=== PATIENT | male | born 1935 | race Caucasian/White ===

== ENCOUNTER 2016-12-31 17:34 | Inpatient (IN) | payer BC, OTHER ==
[~2016-12-31] VITALS: Ht 190.5 cm; Wt 126.7 kg
[~2016-12-31 17:34] MED LIST: ALUMCHW6 PO; ASCA500 PEG; ASPI-390 PO; CALC-323 PO; CYAN500T13 PO; L LYSINE PO; MOVE FREE PO; TRIA0.1C20 TOP
[2016-12-31] MEDS ORDERED: SODIUM CHLORIDE 0.9% 1000ML 1,000 ML IV STA (18:17)
[2016-12-31] MEDS ORDERED: ASPIRIN 81 MG CHEW PO STA (18:17)
[2016-12-31] MEDS ORDERED: NITROGLYCERIN 0.4 MG SL PER TAB CHARGE SL PRN ×2 (18:30→23:15)
[2016-12-31 18:34] LABS: BASO % 0.6 %; BASO ABS # 0.04 K/uL (0-0.2); COMPLETE YES; EOS % 1.8 %; HEMATOCRIT 43.8 % (42-52); IG% 0.5 %; LYMPH % 19.2 %; LYMPH ABS # 1.27 K/uL (1.2-3.4); MEAN CELL VOLUME 84.1 fL (80-100); MEAN CORPUSCULAR HEMOGLOBIN 30.1 pg (25-34); MEAN CORPUSCULAR HGB CONC 35.8 g/dl (32-36); MEAN PLATELET VOLUME 8.8 fL (7.4-10.4); MONO % 8.7 %; NEUT % 69.2 %; PLATELET COUNT 132 K/uL (130-400); RED BLOOD COUNT 5.21 M/uL (4.7-6.1); WHITE BLOOD COUNT 6.63 K/uL (4.8-10.8)
[2016-12-31 18:40] LABS: ALT/SGPT 20 U/L (12-78); BLOOD UREA NITROGEN 19 mg/dl (7-18); BUN/CREATININE RATIO 15.4 (10-20); CALCIUM 9.6 mg/dl (8.5-10.1); CARBON DIOXIDE 26 mmol/L (21-32); CHLORIDE 108 mmol/L (98-107); GLUCOSE 86 mg/dl (70-99); MAGNESIUM 2.1 mg/dl (1.8-2.4); POTASSIUM 4.3 mmol/L (3.5-5.1); SODIUM 140 mmol/L (136-145)
[2016-12-31 18:45] LABS: ALKALINE PHOSPHATASE 71 U/L (45-117); AST/SGOT 23 U/L (15-37)
--- NOTE | 2016-12-31 19:01 | DIAGNOSTIC IMAGING REPORT ---
SINGLE VIEW CHEST CLINICAL HISTORY: Atypical chest pain. FINDINGS: An AP, portable, upright chest radiograph is compared to study dated 07/18/2014. The examination is degraded by portable technique, apical lordotic positioning, and patient rotation. The heart is mildly enlarged. The pulmonary vasculature is noncongested. Chronic interstitial thickening is similar to previous. The lungs and pleural spaces are otherwise clear. No pneumothorax is seen. The skeletal structures are osteopenic. Degenerative change is noted throughout the thoracic spine. IMPRESSION: Cardiomegaly with no acute cardiopulmonary abnormality. Electronically signed by: Gatito Boone M.D. 12/31/2016 6:59 PM Dictated Date/Time: 12/31/2016 6:59 PM
[2016-12-31] MEDS ORDERED: KETOROLAC TROMETHAMINE 30 MG/ML VIAL IV STA (20:24)
[2016-12-31] MEDS ORDERED: MULT-506 PO (21:14)
--- NOTE | 2016-12-31 21:26 | EMERGENCY ROOM VISIT NOTE ---
History Report prepared by [place]: Cristela Noriega Under the Supervision of: Dr. Hugh Jaeger M.D. First contact with patient: 17:56 Chief Complaint: CHEST PAIN Stated Complaint: SORE ARM, CHEST History of Present Illness The patient is an 81 year old male who presents to the Emergency Room with complaints of persistent left chest pain starting 1430 today. He describes the pain as a dull ache. He states that it is mild and started gradually. The pain goes into his left shoulder and down his arm. He has never had this before. He was feeling well this morning. He feels his heart beating irregularly at times. He has a history of PVCs. He denies any nausea, vomiting, SOB, diaphoresis, fever, chills, cough, congestion, diarrhea, constipation, or urinary symptoms. He notes he has pulled out several thin porcupine quill-like strings out of his arms recently. He denies any heavy lifting. He denies any history of hypertension, PA, high cholesterol, or diabetes. Source of History: patient Onset: 1430 today Position: chest (left) Symptom Intensity: mild Quality: ache, dull Timing: other (persistent) Associated Symptoms: No fevers, No chills, No diaphoresis, No cough, No SOB , No nausea, No vomiting, No diarrhea, No urinary symptoms Note: Pt reports left shoulder pain, left arm pain, irregular heart beats. Pt denies congestion, constipation. Review of Systems See HPI for pertinent positives and negatives. A total of ten systems were reviewed and were otherwise negative. Past Medical & Surgical Medical Problems: (1) Chest pain radiating to arm (2) No Known Active Medical Problems Family History Noncontributory secondary to age. Social History Smoking Status: Never Smoker Marital Status: Occupation Status: retired Current/Historical Medications Scheduled Cyanocobalamin (Vitamin B12 500MCG), 2,500 MCG PO QAM Multivitamin (Multivitamin), 1 TAB PO DAILY Scheduled PRN Triamcinolone Acet (Aristocort 0.1%), 1 APPLN EXT BID PRN for Itching Allergies Coded Allergies: Aspartame (Verified Allergy, Unknown, HEADACHE,SWEATS,VOMITING, 12/31/16) Codeine (Verified Allergy, Unknown, MEMORY PROBLEMS, 12/31/16) Physical Exam Vital Signs Date Time Temp Pulse Resp B/P (MAP) Pulse Ox O2 Delivery O2 Flow Rate FiO2 12/31/16 22:20 71 18 136/75 97 Room Air 12/31/16 22:08 84 12/31/16 21:09 69 20 148/85 97 Room Air 12/31/16 20:07 66 18 129/72 97 Room Air 12/31/16 18:35 73 120/78 12/31/16 18:26 97 Room Air 12/31/16 18:12 64 12/31/16 17:59 97 Room Air 12/31/16 17:51 36.4 69 150/79 98 Room Air Physical Exam GENERAL: Awake, alert, well-appearing, in no distress HENT: Normocephalic, atraumatic. Dry mucous membranes. EYES: Normal conjunctiva. Sclera non-icteric. NECK: Supple. No nuchal rigidity. FROM. No JVD. RESPIRATORY: Clear to auscultation. CARDIAC: Regular rate, normal rhythm. Extremities warm and well perfused. Pulses equal. ABDOMEN: Soft, non-distended. No tenderness to palpation. No rebound or guarding. No masses. RECTAL: Deferred. MUSCULOSKELETAL: Chest examination reveals no tenderness. The back is symmetrical on inspection without obvious abnormality. There is no CVA tenderness to palpation. No joint edema. LOWER EXTREMITIES: Calves are equal size bilaterally and non-tender. No edema. No discoloration. NEURO: Normal sensorium. No sensory or motor deficits noted. SKIN: No rash or jaundice noted. Medical Decision & Procedures ER Provider Diagnostic Interpretation: Radiology results as stated below per my review and radiologist interpretation: SINGLE VIEW CHEST CLINICAL HISTORY: Atypical chest pain. FINDINGS: An AP, portable, upright chest radiograph is compared to study dated 07/18/2014. The examination is degraded by portable technique, apical lordotic positioning, and patient rotation. The heart is mildly enlarged. The pulmonary vasculature is noncongested. Chronic interstitial thickening is similar to previous. The lungs and pleural spaces are otherwise clear. No pneumothorax is seen. The skeletal structures are osteopenic. Degenerative change is noted throughout the thoracic spine. IMPRESSION: Cardiomegaly with no acute cardiopulmonary abnormality. Electronically signed by: Gatito Boone M.D. 12/31/2016 6:59 PM Dictated Date/Time: 12/31/2016 6:59 PM Laboratory Results Test 12/31/16 18:05 Total Bilirubin 0.6 mg/dl (0.2-1) Direct Bilirubin 0.2 mg/dl (0-0.2) Aspartate Amino Transf (AST/SGOT) 23 U/L (15-37) Alanine Aminotransferase (ALT/SGPT) 20 U/L (12-78) Alkaline Phosphatase 71 U/L (45-117) Total Protein 7.2 gm/dl (6.4-8.2) Albumin 3.8 gm/dl (3.4-5.0) Lipase 207 U/L (73-393) Laboratory results reviewed by me Medications Administered Medications (Trade) Dose Ordered Sig/Leno Route Start Time Stop Time Status Last Admin Dose Admin Aspirin (Aspirin Chew) 324 mg NOW STAT PO 12/31/16 18:17 12/31/16 18:20 DC 12/31/16 18:29 324 MG Nitroglycerin (Nitrostat Tab) 0.4 mg Q5M PRN SL 12/31/16 18:30 12/31/16 23:42 DC 12/31/16 18:29 0.4 MG Sodium Chloride 1,000 ml @ 999 mls/hr Q1H1M STAT IV 12/31/16 18:17 12/31/16 19:17 DC 12/31/16 18:29 999 MLS/HR Ketorolac Tromethamine (Toradol Inj) 30 mg NOW STAT IV 12/31/16 20:24 12/31/16 20:25 DC 12/31/16 20:34 30 MG ECG Indication: chest pain Rate (beats per minute): 62 Rhythm: normal sinus Findings: no acute ischemic change, other (normal axis) ED Course 1815: The patient was evaluated in room B2. A complete history and physical exam was performed. 1816: NSS 1000 ml @ 999 mls/hr IV, Aspirin 324 mg PO. 1829: Nitroglycerin 0.4 mg SL. 1951: Upon reexamination, the patient was resting comfortably. I discussed the test results and treatment plan with him. The patient will be evaluated for further management. 2023: Toradol Inj 30 mg IV. 2030: I discussed the patient's case with Dr. Giron, [facility] hospitalist. The patient will be evaluated for further treatment and disposition. Medical Decision I reviewed the patient's past medical history, medications, and the nursing notes as described above. Differential diagnosis: ACS, pneumonia, bronchitis, musculoskeletal strain. The patient is an 81 y/o man previously healthy who presents to the emergency department with chest pain per HPI. On arrival the patient is in NAD. AFVSS. EKG unremarkable. Trop negative. CXR negative. Labs otherwise unremarkable. Patient denies any prior cardiac evaluation. Patient is a Heart score of 4, moderate risk. Thus admitted for further cardiac r/o. Case d/w NIKHIL Parekh hospitalist, who will admit the patient for further management. Medication Reconcilliation Current Medication List: was personally reviewed by me Blood Pressure Screening Patient's blood pressure: Elevated blood pressure Blood pressure disposition: Elevated BP felt to be situational Consults Time Called: 2022 Consulting Physician: NIKHIL Parekh hospitalist Returned Call: 2030 Discussed the patient's case. The patient will be evaluated for further treatment and disposition. Impression Primary Impression: Substernal chest pain Scribe Attestation The scribe's documentation has been prepared under my direction and personally reviewed by me in its entirety. I confirm that the note above accurately reflects all work, treatment, procedures, and medical decision making performed by me. Departure Information Dispostion Being Evaluated By Hospitalist Prescriptions Triamcinolone Acet (ARISTOCORT 0.1%) 240 Appln/80 Gm Cr 1 APPLN EXT BID Y for Itching, #1 TUBE Prov: Meghan Lorenz PA-C 01/01/17 Referrals Jacky Hernandez M.D. (PCP) Patient Instructions My [facility]
--- NOTE | 2016-12-31 23:08 | History and Physical ---
History & Physical Date & Time of Service: Dec 31, 2016 at 23:08 Chief Complaint: Sore Arm, Chest Primary Care Physician: Jacky Hernandez M.D. History of Present Illness Source: patient The patient is in a 81-year-old male who presents to the emergency department with left-sided chest pain radiating toward left arm that began at 1430 today. He does have a history of PVCs, and occasionally feels his heart beating irregularly, but does not have any associated lightheadedness or dizziness or chest pain with toes. He also notes a number of spots on his skin where he's picked at what look like little porcupine quill strings out of his arms and legs recently that primarily began as itchy areas Family History Noncontributory Social History Smoking Status: Never Smoker Smokeless Tobacco Use: No Alcohol Use: none Drug Use: none Marital Status: Occupational Status: retired Immunizations History of Influenza Vaccine: Unknown History of Tetanus Vaccine?: Unknown History of Pneumococcal: Unknown History of Hepatitis B Vaccine: Unknown Multi-Drug Resistant Organisms History of MDRO: No Allergies Coded Allergies: Aspartame (Verified Allergy, Unknown, HEADACHE,SWEATS,VOMITING, 12/31/16) Codeine (Verified Allergy, Unknown, MEMORY PROBLEMS, 12/31/16) Home Medications Scheduled Cyanocobalamin (Vitamin B12 500MCG), 2,500 MCG PO QAM Multivitamin (Multivitamin), 1 TAB PO DAILY Review of Systems The patient denies shortness of breath, cough, lower extremity swelling, vision change, hearing change, sore throat, fevers, chills, sweats, weight change, fatigue, nausea, vomiting, diarrhea or constipation, abdominal pain, pelvic pain, blood in urine or stool, dysuria, urinary frequency or urgency, lightheadedness , dizziness, headache, memory loss, rash, abnormal bruising or bleeding, imbalance, focal or generalized weakness, generalized arthralgias or myalgias, back or neck pain, or night sweats. The review of systems is otherwise negative other than for that already noted above, and at least 10 systems have been reviewed. Physical Exam Vital Signs Date Time Temp Pulse Resp B/P (MAP) Pulse Ox O2 Delivery O2 Flow Rate FiO2 12/31/16 22:59 65 18 130/73 98 Room Air 12/31/16 22:20 71 18 136/75 97 Room Air 12/31/16 22:08 84 12/31/16 21:09 69 20 148/85 97 Room Air 12/31/16 20:07 66 18 129/72 97 Room Air 12/31/16 18:35 73 120/78 12/31/16 18:26 97 Room Air 12/31/16 18:12 64 12/31/16 17:59 97 Room Air 12/31/16 17:51 36.4 69 150/79 98 Room Air The patient is awake, well-developed and adequately nourished, alert and oriented 3, normocephalic and atraumatic, lying in bed and in no acute distress. HEENT--PERRL, EOMI, mucous membranes and oropharynx dry. Neck--supple, no JVD or bruits, thyroid normal, trachea midline, no adenopathy. Heart--normal S1 and S2, no extra beats, no murmurs, rubs or gallops. Lungs--clear bilaterally with good air movement, no respiratory distress, no accessory muscle use. Abdomen--normal bowel sounds and soft, nontender and nondistended, no hernias or masses, no organomegaly. Extremities--no cyanosis, clubbing or edema. There are good distal pulses b/l. Dermatologic--multiple scabbed areas over upper extremities and lower extremities Neurologic--cranial nerves II through XII grossly intact. Rheumatologic--normal range of motion, nontender, muscles and joints. Psychiatric--normal affect. Diagnostics Laboratory Results Results Past 24 Hours Test 12/31/16 18:05 Range/Units White Blood Count 6.63 4.8-10.8 K/uL Red Blood Count 5.21 4.7-6.1 M/uL Hemoglobin 15.7 14.0-18.0 g/dL Hematocrit 43.8 42-52 % Mean Corpuscular Volume 84.1 80-100 fL Mean Corpuscular Hemoglobin 30.1 25-34 pg Mean Corpuscular Hemoglobin Concent 35.8 32-36 g/dl Platelet Count 132 130-400 K/uL Mean Platelet Volume 8.8 7.4-10.4 fL Neutrophils (%) (Auto) 69.2 % Lymphocytes (%) (Auto) 19.2 % Monocytes (%) (Auto) 8.7 % Eosinophils (%) (Auto) 1.8 % Basophils (%) (Auto) 0.6 % Neutrophils # (Auto) 4.59 1.4-6.5 K/uL Lymphocytes # (Auto) 1.27 1.2-3.4 K/uL Monocytes # (Auto) 0.58 0.11-0.59 K/uL Eosinophils # (Auto) 0.12 0-0.5 K/uL Basophils # (Auto) 0.04 0-0.2 K/uL RDW Standard Deviation 40.4 36.4-46.3 fL RDW Coefficient of Variation 13.2 11.5-14.5 % Immature Granulocyte % (Auto) 0.5 % Immature Granulocyte # (Auto) 0.03 0.00-0.02 K/uL Sodium Level 140 136-145 mmol/L Potassium Level 4.3 3.5-5.1 mmol/L Chloride Level 108 98-107 mmol/L Carbon Dioxide Level 26 21-32 mmol/L Anion Gap 6.0 3-11 mmol/L Blood Urea Nitrogen 19 7-18 mg/dl Creatinine 1.20 0.60-1.40 mg/dl Est Creatinine Clear Calc Drug Dose 60.0 ml/min Estimated GFR () 65.3 Estimated GFR (Non- 56.4 BUN/Creatinine Ratio 15.4 10-20 Random Glucose 86 70-99 mg/dl Calcium Level 9.6 8.5-10.1 mg/dl Magnesium Level 2.1 1.8-2.4 mg/dl Total Bilirubin 0.6 0.2-1 mg/dl Direct Bilirubin 0.2 0-0.2 mg/dl Aspartate Amino Transf (AST/SGOT) 23 15-37 U/L Alanine Aminotransferase (ALT/SGPT) 20 12-78 U/L Alkaline Phosphatase 71 45-117 U/L Troponin I < 0.015 0-0.045 ng/ml Total Protein 7.2 6.4-8.2 gm/dl Albumin 3.8 3.4-5.0 gm/dl Lipase 207 73-393 U/L Diagnostic Radiology Patient Name: JAMES MCKEON Unit Number: [id number] Dictated: 12/31/161858 Transcribed: 12/31/161858 EV Printed Date/Time: [~ rep prt dt]/[~ rep prt tm] [~ rep ct labl] - [~ rep ct ivnm] [facility] Radiology Department [place], [place] [id number] Dictated: 12/31/161858 Transcribed: 12/31/161858 EV Printed Date/Time: [~ rep prt dt]/[~ rep prt tm] [~ rep ct labl] - [~ rep ct ivnm] [~ rep ct add3]] SINGLE VIEW CHEST CLINICAL HISTORY: Atypical chest pain. FINDINGS: An AP, portable, upright chest radiograph is compared to study dated 07/18/2014. The examination is degraded by portable technique, apical lordotic positioning, and patient rotation. The heart is mildly enlarged. The pulmonary vasculature is noncongested. Chronic interstitial thickening is similar to previous. The lungs and pleural spaces are otherwise clear. No pneumothorax is seen. The skeletal structures are osteopenic. Degenerative change is noted throughout the thoracic spine. IMPRESSION: Cardiomegaly with no acute cardiopulmonary abnormality. Electronically signed by: Gatito Boone M.D. 12/31/2016 6:59 PM Dictated Date/Time: 12/31/2016 6:59 PM The status of this report is Signed. Draft = Not yet reviewed or approved by Radiologist. Signed = Reviewed and approved by Radiologist. <AttendingPhy></AttendingPhy> <FamilyPhy>Jacky Hernandez M.D.</FamilyPhy> < PrimaryPhy>Jacky Hernandez M.D.</PrimaryPhy> <UnitNumber>[id number]</ UnitNumber> <VisitNumber>[id number]</VisitNumber> <PatientName>MCKEONJAMES</PatientName> <DateOfBirth>1935</DateOfBirth> <Location>[facility]</ Location> <ServiceDate>12/31/16</ServiceDate> <MNE>ESINDI</MNE> <OrderingPhy> Hugh Jaeger M.D.</OrderingPhy> <OrderingPhyMNE>f rep ord dr perez</ OrderingPhyMNE> <DictatingPhyMNE>f rep dict dr perez</DictatingPhyMNE> <CCListMNE> f rep ct mne</CCListMNE> <AdmittingPhyMNE>f pt admit dr perez</AdmittingPhyMNE> < AttendingPhyMNE>f pt attend dr perez</AttendingPhyMNE> <ConsultingPhyMNE>f pt consult dr perez</ConsultingPhyMNE> <FamilyPhyMNE>f pt fam dr perez</FamilyPhyMNE> <OtherPhyMNE>f pt other dr perez</OtherPhyMNE> < PrimaryPhyMNE>f pt prim care dr perez</PrimaryPhyMNE> <ReferringPhyMNE>f pt referring dr perez</ReferringPhyMNE> EKG EKG shows normal sinus rhythm at 69 bpm, there are no acute ST-T changes Impression Assessment and Plan Left-sided chest pain with radiation to left arm-- The patient will be admitted to telemetry for serial cardiac enzymes, cardiac rhythm monitoring and a 2-D echocardiogram with Dopplers. Aspirin 81 mg by mouth every morning. If workup is negative, the patient should have a stress echocardiogram prior to discharge. He reports having had a stress test done several years ago. Dermatologic-- Send MRSA swab. Vitamin B12 deficiency-- Continue 2500 g by mouth daily supplementation. Level of Care Telemetry Advanced Directives Existing Advance Directive: No Existing Living Will: No Existing Power of President [place]: No Resuscitation Status FULL RESUSCITATION VTE Prophylaxis VTE Risk Assessment Done? Y/N: Yes Risk Level: Moderate Given or contraindicated: SCD's Social Service Consult None Apply
[2016-12-31] MEDS ORDERED: ACETAMINOPHEN 325 MG TAB PO PRN (23:15)
[2016-12-31] MEDS ORDERED: ONDANSETRON INJ 2 MG/ML 2 ML VIAL IV PRN (23:15)
[2017-01-01] VITALS (7 sets, daily range): BP systolic 109–155; BP diastolic 68–80; PULSE 60–102; TEMP 36.6–37.3; O2SAT 90–97; Ht 190.5 cm; Wt 126.7 kg
[2017-01-01 07:49] LABS: INR 0.9 (0.9-1.1); PARTIAL THROMBOPLASTIN RATIO 1.1
[2017-01-01 08:03] LABS: CKMB/CK RATIO 3.3 (0-3.0)
[2017-01-01 08:11] LABS: BUN/CREATININE RATIO 17.9 (10-20); CALCIUM 8.6 mg/dl (8.5-10.1); POTASSIUM 4.1 mmol/L (3.5-5.1)
[2017-01-01 08:44] LABS: HEMATOCRIT 40.4 % (42-52); MEAN CELL VOLUME 84.3 fL (80-100); MEAN CORPUSCULAR HEMOGLOBIN 29.2 pg (25-34); MEAN CORPUSCULAR HGB CONC 34.7 g/dl (32-36); PLATELET COUNT 108 K/uL (130-400); RED BLOOD COUNT 4.79 M/uL (4.7-6.1); WHITE BLOOD COUNT 5.13 K/uL (4.8-10.8)
[2017-01-01 08:51] LABS: BASO % 0.6 %; BASO ABS # 0.03 K/uL (0-0.2); COMPLETE YES; EOS % 3.5 %; IG% 0.2 %; LYMPH % 23.6 %; LYMPH ABS # 1.21 K/uL (1.2-3.4); MONO % 8.8 %; NEUT % 63.3 %; PLT ESTIMATE DECREASED
[2017-01-01] MEDS ORDERED: MULTIVITAMIN TAB PO SCH (09:00)
[2017-01-01] MEDS ORDERED: ASPIRIN 81 MG CHEW PO SCH (09:00)
[2017-01-01] MEDS ORDERED: CYANOCOBALAMIN 500 MCG TAB (VIT B-12) PO SCH (09:00)
[2017-01-01] MEDS ORDERED: TRIAMCINOLONE ACET 0.1% CR 15 GM TUBE EXT ONE (11:15)
[2017-01-01] MEDS ORDERED: TRMCR180 EXT (14:26)
--- NOTE | 2017-01-01 15:02 | Discharge Instructions ---
Discharge Instructions Date of Service Jan 01, 2017. Admission Reason for Admission: Chest Pain Radiating To Arm, Substernal Chest Pain Discharge Discharge Diagnosis / Problem: Chest pain Discharge Goals Goal(s): Decrease discomfort, Diagnostic testing, Therapeutic intervention Activity Recommendations Activity Limitations: resume your previous activity . Instructions / Follow-Up Instructions / Follow-Up You were admitted to [facility] due to left chest/arm discomfort that occurred while typing on the computer. An acute cardiac event was ruled out through heart monitoring overnight, cardiac enzymes, and an echocardiogram. It is recommended you follow-up with your PCP to further investigate/workup/treat the symptoms you experienced. Please discuss with your PCP about starting a daily low dose Aspirin for prevention measures. Please seek medical attention SARAH if you experience dizziness, fatigue, chest discomfort and/or radiating symptoms to arms/jaw/back, palpitations, shortness of breath, diaphoresis, nausea/vomiting, indigestion, or any other worrisome/ concerning symptoms. In regards to your skin lesions: You may use Triamcinolone cream twice per day as needed for skin itchiness It is recommended you follow-up with your PCP to further investigate/workup/ treat Resume all regular home medications as prescribed. Home Care: * Take your medications exactly as directed. Don't skip doses. * If you are having chest pain, call 911 for an ambulance. Do NOT drive yourself to the hospital. * Ask your family members to learn CPR. * Learn to take your own blood pressure and pulse. Keep a record of your results. Ask your doctor when you should seek emergency medical attention. He or she will tell you which blood pressure reading is dangerous. Lifestyle Changes: * Maintain a healthy weight. Get help to lose any extra pounds. * Cut back on salt. * Limit canned, dried, packaged, and fast foods. * Don't add salt to your food. * Season foods with herbs instead of salt when you cook. * Break the smoking habit. Enroll in a stop-smoking program to improve your chances of success. * Limit fatty foods. * Ask your doctor about having your lipid levels checked regularly. * Build up your activity according to your doctor's recommendation. * Ask your doctor when it's okay to resume sexual activity. * Tell your doctor about any erectile dysfunction (ED) medication you are taking. Some ED medications are not safe if you take certain heart medications. * Try to manage stress. Follow Up: It is important for you to keep your follow up appointments with your medical provider. Please follow-up with your PCP within 5-7 days- appointment scheduled with Dr. Hernandez on 01/06/17 at 11:10AM Please follow-up/keep all of your subspecialty appointments Current Hospital Diet Patient's current hospital diet: AHA Diet (Heart Healthy) Discharge Diet Recommended Diet: AHA Diet (Heart Healthy) Pending Studies Studies pending at discharge: no Medical Emergencies . Who to Call and When: Medical Emergencies: If at any time you feel your situation is an emergency, please call 911 immediately. Call 911 immediately or go to your nearest Emergency Room if you experience any of the following: Warning Signs and Symptoms of a Heart Attack * Chest pain that is not relieved by medication * Shortness of breath . Non-Emergent Contact Non-Emergency issues call your: Primary Care Provider Call Non-Emergent contact if: your pain is not controlled, your pain is worsening, your pain is unusual for you, your pain is concerning you, you have any medication questions . . "Provider Documentation" section prepared by Meghan Lorenz. . AMI Core Measures Reason no ASA as I/P: Treatment provided - N/A Reason no ASA at D/C: Treatment not indicated Reason no statin as I/P: Treatment not indicated Reason no statin at D/C: Treatment not indicated VTE Core Measure Inpt VTE Proph given/why not?: SCD's
--- NOTE | 2017-01-01 15:03 | Discharge Summary ---
Discharge Summary Date of Service Jan 01, 2017. (Meghan Lorenz PA-C) Discharge Summary Admission Date: Dec 31, 2016 at 22:20 Discharge Date: Jan 01, 2017 Discharge Disposition: Home Principal Diagnosis: Chest pain Problems/Secondary Diagnoses: b12 deficiency Skin rash Immunizations: Have You Had Influenza Vaccine: Unknown History of Tetanus Vaccine?: Unknown History of Pneumococcal: Unknown History of Hepatitis B Vaccine: Unknown Procedures: SINGLE VIEW CHEST CLINICAL HISTORY: Atypical chest pain. FINDINGS: An AP, portable, upright chest radiograph is compared to study dated 07/18/2014. The examination is degraded by portable technique, apical lordotic positioning, and patient rotation. The heart is mildly enlarged. The pulmonary vasculature is noncongested. Chronic interstitial thickening is similar to previous. The lungs and pleural spaces are otherwise clear. No pneumothorax is seen. The skeletal structures are osteopenic. Degenerative change is noted throughout the thoracic spine. IMPRESSION: Cardiomegaly with no acute cardiopulmonary abnormality. Electronically signed by: Gatito Boone M.D. 12/31/2016 6:59 PM Dictated Date/Time: 12/31/2016 6:59 PM The status of this report is Signed. Draft = Not yet reviewed or approved by Radiologist. Signed = Reviewed and approved by Radiologist. (Meghan Lorenz PA-C) Medication Reconciliation New Medications: Triamcinolone Acet (Aristocort 0.1%) 240 Appln/80 Gm Cr 1 APPLN EXT BID PRN for Itching, #1 TUBE Continued Medications: Cyanocobalamin (Vitamin B12 500MCG) 500 Mcg Tab 2500 MCG PO QAM, TAB Multivitamin (Multivitamin) Tab 1 TAB PO DAILY, TAB Discharge Exam Review of Systems: Constitutional: No fever, No chills, No sweats, No weakness, No fatigue ENT: No hearing loss Respiratory: No cough, No shortness of breath, No hemoptysis Cardiovascular: No chest pain, No orthopnea, No edema, No palpitations Abdomen: No pain, No nausea, No vomiting, No diarrhea, No constipation Musculoskeletal: No joint pain, No muscle pain, No swelling, No calf pain Genitourinary - Male: No hematuria, No dysuria Neurologic: No weakness, No numbness/tingling Psychiatric: No depression symptoms, No anxiety Hematologic / Lymphatic: No abnormal bleeding/bruising Integumentary: No rash, No itch, No new/changing skin lesions Physical Exam: General Appearance: no apparent distress Eyes: normal inspection, PERRL ENT: hearing grossly normal Neck: supple Respiratory/Chest: lungs clear, no respiratory distress, no accessory muscle use Cardiovascular: regular rate, rhythm Abdomen / GI: normal bowel sounds, non tender, soft Extremities: no calf tenderness, no pedal edema, + pertinent finding (noted circular scabbed lesion to bilateral upper extremites/RLE to ankle/thigh regions ) Neurologic/Psychiatric: alert, normal mood/affect, oriented x 3 Skin: normal color, warm/dry, no rash (Meghan Lorenz, [place]) Hospital Course Admission H&P: The patient is in a 81-year-old male who presents to the emergency department with left-sided chest pain radiating toward left arm that began at 1430 today. He does have a history of PVCs, and occasionally feels his heart beating irregularly, but does not have any associated lightheadedness or dizziness or chest pain with toes. He also notes a number of spots on his skin where he's picked at what look like little porcupine quill strings out of his arms and legs recently that primarily began as itchy areas Physical Exam Vital Signs Date Time Temp Pulse Resp B/P (MAP) Pulse Ox O2 Delivery O2 Flow Rate FiO2 12/31/16 22:59 65 18 130/73 98 Room Air 12/31/16 22:20 71 18 136/75 97 Room Air 12/31/16 22:08 84 12/31/16 21:09 69 20 148/85 97 Room Air 12/31/16 20:07 66 18 129/72 97 Room Air 12/31/16 18:35 73 120/78 12/31/16 18:26 97 Room Air 12/31/16 18:12 64 12/31/16 17:59 97 Room Air 12/31/16 17:51 36.4 69 150/79 98 Room Air The patient is awake, well-developed and adequately nourished, alert and oriented 3, normocephalic and atraumatic, lying in bed and in no acute distress. HEENT--PERRL, EOMI, mucous membranes and oropharynx dry. Neck--supple, no JVD or bruits, thyroid normal, trachea midline, no adenopathy. Heart--normal S1 and S2, no extra beats, no murmurs, rubs or gallops. Lungs--clear bilaterally with good air movement, no respiratory distress, no accessory muscle use. Abdomen--normal bowel sounds and soft, nontender and nondistended, no hernias or masses, no organomegaly. Extremities--no cyanosis, clubbing or edema. There are good distal pulses b/l. Dermatologic--multiple scabbed areas over upper extremities and lower extremities Neurologic--cranial nerves II through XII grossly intact. Rheumatologic--normal range of motion, nontender, muscles and joints. Psychiatric--normal affect. Hospital Course: Left-sided chest pain with radiation to left arm, r/o ACS: - Admitted to tele for cardiac monitoring- no acute events - Cardiac enzymes- negative - ECHO obtained - ASA 81 mg daily- instructed to discuss continued low dose ASA w/ PCP Dermatologic: - MRSA swab negative - [place] of Triamcinolone 0.1% BID PRN for itchiness - Recommend f/u w/ PCP outpatient for additional workup Vitamin B12 deficiency: Continue b12 2500 g by mouth daily supplementation DVT prophylaxis: TEDs/SCDs, ambulation Code Status: LEVEL I, FULL Dispo: Discharge to home Total Time Spent: Greater than 30 minutes This includes examination of the patient, discharge planning, medication reconciliation, and communication with other providers. (Meghan Lorenz, PA-C) I agree with PA assessment and plan and have seen and examined pt myself Resting comfortably in bed No more chest pain Trops x 3 sets WNL EKG NSR Likely atypical pain Noted mult lesions on arms and legs, ?bed bugs/spider bites DC with triamcinolone cream (Valdez Carrasco D.O.) Discharge Instructions Please refer to the electronic Patient Visit Report (Discharge Instructions) for additional information. (Meghan Lorenz, PA-C) Follow-Up Please follow-up with your PCP within 5-7 days- appointment scheduled for w/ Dr. Hernandez Please follow-up/keep all of your subspecialty appointments (Meghan Lorenz, ALEAH-C) Additional Copies To Jacky Hernandez M.D.
[2017-01-01 16:28] LABS: CKMB/CK RATIO 3.3 (0-3.0)
--- NOTE | 2017-01-01 16:46 | ECHOCARDIOGRAM REPORT ---
*NOTICE TO RECEIVING DEMOCRAT AGENCY This information is strictly Confidential and protected under [place] law. [place] law prohibits you from making any further disclosure of this information unless further disclosure is expressly permitted by the written consent of the person to whom it pertains or is authorized by law. A general authorization for the release of medical or other information is not sufficient for this purpose. Hospital accepts no responsibility if the information is made available to any other person, INCLUDING THE PATIENT. Interpretation Summary * Name: JAMES MCKEON Study Date: 01/01/2017 08:54 AM BP: 124/72 mmHg * Patient Location: [facility]\S\N289\S\1 HR: 62 * : 1935 (M/d/yyyy) Gender: Male Height: 73 in * Age: 81 yrs Ethnicity: [place] Weight: 220 lb * Ordering Physician: Roman Giron * Referring Physician: Self, Referred * Performed By: Gwen Laguna RCS * * Reason For Study: CHEST PAIN * BSA: 2.2 m2 * -- Conclusions -- * 1. Normal left ventricular size and systolic function. Estimated EF 55-60%. No visualized regional wall motion abnormalities. Mild concentric left ventricular hypertrophy. Type 2 diastolic dysfunction; pseudo normalized pattern. * 2. No significant valvular abnormalities visualized. * 3. Top-normal estimated right ventricular systolic pressure; 36 mmHg. * 4. No prior study available for comparison. Procedure Details * A complete two-dimensional transthoracic echocardiogram was performed (2D, M-mode, Doppler and color flow Doppler). Left Ventricle * Normal left ventricular size and systolic function. Estimated EF 55-60%. No visualized regional wall motion abnormalities. Mild concentric left ventricular hypertrophy. Type 2 diastolic dysfunction; pseudo normalized pattern. Right Ventricle * The right ventricle is normal in size and function. * The right ventricular systolic function is normal as assessed by tricuspid annular plane systolic excursion (TAPSE) (normal >1.5 cm). Atria * The left atrial size is normal. * Right atrial size is normal. * There is no evidence of atrial septal defect, but resolution does not allow assessment for a patent foramen ovale. Mitral Valve * The mitral valve is grossly normal. * There is no mitral valve stenosis. * There is trace mitral regurgitation. Tricuspid Valve * The tricuspid valve is not well visualized, but is grossly normal. * There is no tricuspid stenosis. * There is trace tricuspid regurgitation. Aortic Valve * The aortic valve is trileaflet. * No hemodynamically significant valvular aortic stenosis. * No aortic regurgitation is present. Pulmonic Valve * The pulmonary valve is inadequately visualized, but the Doppler data is adequate for interpretation. * There is no pulmonic valvular stenosis. * Mild pulmonic valvular regurgitation. Great Vessels * The aortic root is normal size. * Normal pulmonary venous flow pattern. Pericardium/Pleural * There is no pericardial effusion. Great Vessels * Normal inferior vena cava size and collapsability with sniff indicates a normal right atrial pressure of 3 mmHg MMode 2D Measurements and Calculations IVSd 1.3 cm IVSs 1.5 cm LVIDd 4.5 cm LVIDs 2.8 cm LVPWd 1.3 cm LVPWs 1.3 cm IVS/LVPW 1.0 FS 37.2 % EDV(Teich) 93.8 ml ESV(Teich) 30.7 ml EF(Teich) 67.2 % EDV(cubed) 92.8 ml ESV(cubed) 23.0 ml EF(cubed) 75.2 % % IVS thick 13.7 % % LVPW thick -1.21 % LV mass(C)d 225.2 grams LV mass(C)dI 100.5 grams/m\S\2 LV mass(C)s 128.8 grams LV mass(C)sI 57.5 grams/m\S\2 SV(Teich) 63.0 ml SI(Teich) 28.1 ml/m\S\2 SV(cubed) 69.8 ml SI(cubed) 31.1 ml/m\S\2 Ao root diam 3.8 cm Ao root area 11.5 cm\S\2 LA dimension 3.2 cm LA/Ao 0.83 LVOT diam 2.0 cm LVOT area 3.2 cm\S\2 Doppler Measurements and Calculations MV E max sendy 72.3 cm/sec MV A max sendy 56.2 cm/sec MV E/A 1.3 MV P1/2t max sendy 84.6 cm/sec MV P1/2t 62.9 msec MVA(P1/2t) 3.5 cm\S\2 MV dec slope 393.4 cm/sec\S\2 MV dec time 0.32 sec Ao V2 max 109.1 cm/sec Ao max PG 4.8 mmHg Ao max PG (full) 0.84 mmHg LISA(V,A) 2.9 cm\S\2 LISA(V,D) 2.9 cm\S\2 LV V1 max PG 3.9 mmHg LV V1 max 99.1 cm/sec PA V2 max 86.3 cm/sec PA max PG 3.0 mmHg PI max sendy 140.6 cm/sec PI max PG 7.9 mmHg PI dec slope 130.2 cm/sec\S\2 PI P1/2t 316.3 msec TR max sendy 288.2 cm/sec RVSP(TR) 36.2 mmHg RAP systole 3.0 mmHg
== END 2017-01-01 17:47 | disposition home or self-care (01) | DRG 313 ==
LOC: C.EDB 17:36 → C.MED 22:20 → ENRESERV 22:56
PROVIDERS: ADMIT Hospitalist; ATTEND Hospitalist
DX: R07.2 Precordial pain (principal); R21 Rash and other nonspecific skin eruption; E53.8 Deficiency of other specified B group vitamins; Z79.899 Other long term (current) drug therapy